=== PATIENT | female | born 1945 | race Caucasian/White ===

== ENCOUNTER 2018-11-02 11:44 | Inpatient (IN) ==
[2018-11-02] MEDS ORDERED: ONDANSETRON 4 MG/2 ML VIAL IV PRN (13:04)
[2018-11-02] MEDS ORDERED: ACETAMINOPHEN 325 MG TABLET PO PRN (13:04)
[2018-11-02] MEDS ORDERED: oxyCODONE/ACETAMINOPHEN 5-325 MG TABLET PO PRN (13:40)
[2018-11-02] MEDS ORDERED: traMADol 50 MG TABLET PO PRN ×2 (13:42→14:51)
[2018-11-02] MEDS ORDERED: POTASSIUM CHLORIDE 20 MEQ TABLET PO ONE (13:43)
[2018-11-02] MEDS ORDERED: oxyCODONE IR 5 MG TABLET PO PRN (14:11)
[2018-11-02] MEDS: GABAPENTIN 600 MG TABLET PO SCH ×2 (15:37→21:39)
[2018-11-02] MEDS: ENOXAPARIN 40 MG/0.4 ML SYRINGE SUBCUT SCH (15:38)
[2018-11-02] MEDS: SODIUM CHLORIDE 0.9% 1,000 ML IV SCH (15:39)
[2018-11-02] MEDS: DOCUSATE SODIUM 100 MG CAPSULE PO SCH (21:39)
[2018-11-02] MEDS: AMITRIPTYLINE 100 MG TABLET PO SCH (21:40)
[2018-11-03] MEDS: SODIUM CHLORIDE 0.9% 1,000 ML IV SCH ×3 (01:15→17:06)
[2018-11-03 04:50] LABS: Basophils # 0.1 10*3/uL (0.0-0.2); Basophils % 0.9 % (0.0-0.8); Eosinophils # 0.2 10*3/uL (0.0-0.87); Eosinophils % 1.8 % (0.00-10.9); Hematocrit 24.7 VOL% (35.7-47.0); Hemoglobin 8.1 GM/DL (12.0-16.0); Immature Granulocytes % 0.4 %; Immature Granulocytes Absolute 0.04 #; Lymphocytes # 1.4 10*3/uL (1.4-4.0); Lymphocytes % 14.7 % (21.3-54.2); Mean Corpuscular HGB Conc 32.8 GM/DL (32-36); Mean Corpuscular Volume 89.2 FL (87-102); Mean Platelet Volume 9.1 FL (9.6-12.0); Monocytes % 7.9 % (1.7-12.7); Neutrophils % 74.3 % (38.7-73.9); Platelet Count 447 T/CUMM (130-400); Red Blood Count 2.77 MC/CUMM (3.8-5.5); Red Cell Distribution Width 13.3 % (9.3-17.3); White Blood Count 9.2 T/CUMM (4-12)
[2018-11-03 05:17] LABS: Calcium 8.9 MG/DL (8.5-10.1)
[2018-11-03] MEDS: CYANOCOBALAMIN 500 MCG TABLET PO SCH (08:58)
[2018-11-03] MEDS: FERROUS SULFATE 325 MG TABLET PO SCH ×2 (08:58→17:07)
[2018-11-03] MEDS: DOCUSATE SODIUM 100 MG CAPSULE PO SCH ×2 (08:58→21:27)
[2018-11-03] MEDS: ROSUVASTATIN 20 MG TABLET PO SCH (08:58)
[2018-11-03] MEDS: ASCORBIC ACID 500 MG TABLET PO SCH ×2 (09:00→21:27)
[2018-11-03] MEDS: CHOLECALCIFEROL 1,000 UNIT TABLET PO SCH (09:00)
[2018-11-03] MEDS ORDERED: NON-FORMULARY MEDICATION (Cholecalciferol (Vitamin D3) [Vitamin D3] 2,000 UNIT) PO SCH (09:00)
[2018-11-03] MEDS: RALOXIFENE 60 MG TABLET PO SCH (09:00)
[2018-11-03] MEDS: GABAPENTIN 600 MG TABLET PO SCH ×3 (09:00→21:27)
[2018-11-03] MEDS: PANTOPRAZOLE 40 MG TABLET PO SCH (09:01)
[2018-11-03] MEDS: oxyCODONE IR 5 MG TABLET PO PRN ×3 (09:01→21:27)
[2018-11-03] MEDS: CALCIUM (CARBONATE)/VITAMIN D 600 MG-400 UNIT TABLET PO SCH (09:02)
[2018-11-03] MEDS: FOLIC ACID 1 MG TABLET PO SCH (09:02)
[2018-11-03] MEDS: LORATADINE 10 MG TABLET PO SCH (09:02)
[2018-11-03] MEDS: FLUTICASONE 50 MCG NASAL SPRAY 16 GM BOTTLE BOTH NARES SCH (11:42)
[2018-11-03] MEDS: ENOXAPARIN 40 MG/0.4 ML SYRINGE SUBCUT SCH (14:26)
[2018-11-03] MEDS: AMITRIPTYLINE 100 MG TABLET PO SCH (21:27)
[2018-11-04 05:30] LABS: Basophils # 0.1 10*3/uL (0.0-0.2); Basophils % 1.4 % (0.0-0.8); Eosinophils # 0.2 10*3/uL (0.0-0.87); Hematocrit 23.7 VOL% (35.7-47.0); Hemoglobin 7.6 GM/DL (12.0-16.0); Immature Granulocytes % 0.3 %; Immature Granulocytes Absolute 0.02 #; Lymphocytes # 1.6 10*3/uL (1.4-4.0); Lymphocytes % 23.6 % (21.3-54.2); Mean Corpuscular HGB Conc 32.1 GM/DL (32-36); Mean Corpuscular Volume 91.9 FL (87-102); Mean Platelet Volume 8.8 FL (9.6-12.0); Monocytes % 10.1 % (1.7-12.7); Neutrophils % 61.6 % (38.7-73.9); Platelet Count 391 T/CUMM (130-400); Red Blood Count 2.58 MC/CUMM (3.8-5.5); Red Cell Distribution Width 13.4 % (9.3-17.3); White Blood Count 6.6 T/CUMM (4-12)
[2018-11-04 05:53] LABS: Calcium 8.5 MG/DL (8.5-10.1); Osmolality,Calculated 277.5 MOS/KG (273-304)
[2018-11-04] MEDS ORDERED: FUROSEMIDE 40 MG/4 ML VIAL IV ONE (08:10)
[2018-11-04] MEDS ORDERED: SODIUM CHLORIDE 0.9% 1,000 ML IV PRN (08:10)
[2018-11-04] MEDS: CYANOCOBALAMIN 500 MCG TABLET PO SCH (09:06)
[2018-11-04] MEDS: DOCUSATE SODIUM 100 MG CAPSULE PO SCH (09:06)
[2018-11-04] MEDS: CALCIUM (CARBONATE)/VITAMIN D 600 MG-400 UNIT TABLET PO SCH (09:06)
[2018-11-04] MEDS: ROSUVASTATIN 20 MG TABLET PO SCH (09:06)
[2018-11-04] MEDS: ASCORBIC ACID 500 MG TABLET PO SCH (09:07)
[2018-11-04] MEDS: CHOLECALCIFEROL 1,000 UNIT TABLET PO SCH (09:07)
[2018-11-04] MEDS: FOLIC ACID 1 MG TABLET PO SCH (09:07)
[2018-11-04] MEDS: RALOXIFENE 60 MG TABLET PO SCH (09:07)
[2018-11-04] MEDS: oxyCODONE IR 5 MG TABLET PO PRN ×2 (09:07→16:00)
[2018-11-04] MEDS: GABAPENTIN 600 MG TABLET PO SCH ×2 (09:07→16:00)
[2018-11-04] MEDS: FERROUS SULFATE 325 MG TABLET PO SCH ×2 (09:07→17:34)
[2018-11-04] MEDS: PANTOPRAZOLE 40 MG TABLET PO SCH (09:08)
[2018-11-04] MEDS: LORATADINE 10 MG TABLET PO SCH (09:08)
[2018-11-04] MEDS: FLUTICASONE 50 MCG NASAL SPRAY 16 GM BOTTLE BOTH NARES SCH (09:09)
[2018-11-04] MEDS: SODIUM CHLORIDE 0.9% 1,000 ML IV SCH ×3 (09:25→16:00)
[2018-11-04] MEDS: ENOXAPARIN 40 MG/0.4 ML SYRINGE SUBCUT SCH (15:59)
[2018-11-04 17:54] VITALS: BP 137/69
[2018-11-04 17:55] LABS: Hematocrit 33.2 VOL% (35.7-47.0)
[2018-11-04 17:57] LABS: Hemoglobin 10.7 GM/DL (12.0-16.0)
[2018-11-04] MEDS ORDERED: SODIUM PHOSPHATE ENEMA 133 ML BOTTLE RECTAL ONE (22:00)
== END 2018-11-04 18:57 | disposition home or self-care (01) | DRG 641 ==
LOC: N.ULTRA 11:44 → N.5E 12:43
PROVIDERS: ADMIT Internal Medicine; ATTEND Internal Medicine